=== PATIENT | female | born 1990 | race Caucasian/White ===

== ENCOUNTER 2020-01-26 10:28 | Outpatient (CLI) | payer OTHER | END 2020-01-26 10:33 | disposition home or self-care (01) | LOC: RX STUDY 10:28 | PROVIDERS: ATTEND Obstetrics & Gynecology Reproductive Endocrinology | DX: N93.8 Other specified abnormal uterine and vaginal bleeding (principal); Q50.6 Other congenital malformations of fallopian tube and broad ligament; N91.0 Primary amenorrhea ==